=== PATIENT | male | born 2000 | race Caucasian/White ===

== ENCOUNTER 2019-03-15 15:32 | Emergency (ER) | payer BC, SELFPAY ==
[2019-03-15 15:38] VITALS: BP 114/47; PULSE 98; RESP 20; TEMP 36.7; O2SAT 100
--- NOTE | 2019-03-15 16:19 | ED.GENADUL_ITS ---
Discharge Plan Disposition Patient Disposition: HOME Condition: Good Discharge Details Chief Complaint: Chest Pain Clinical Impression: Atypical chest pain Primary Care Provider: Shaji Miles III ED Provider: Rodger Daniels Home Meds and New Rx's Prescriptions: No Action No Known Home Meds RF: 0 Discharge Instructions Instructions: Chest Pain (ED) Additional Instructions: Please see your family doctor return to the emergency department for new concerns worsening pain or inability to follow-up with your primary doctor. Referrals: Shaji Miles III [Primary Care Provider] - Medical Decision Making 19-year-old male with nonspecific chest pain benign physical exam no risk factors normal EKG regular sinus rhythm at 81 normal axis no STEMI no T wave inversions normal interval. Differential diagnosis includes costochondritis versus atypical functional chest pain versus less likely acute coronary syndrome pulmonary embolus or other acute life-threatening cause of chest pain. Patient has no exogenous estrogen no immobilization no history of hypercoagulable states no coronary risk factors no cough no congestion no fever no chills no back pain no tearing sensation no marfanoid appearance HPI 19-year-old male no past medical history who quit smoking a year ago presents with sudden onset sharp and dull central sternal chest pain that comes and goes lasting a few seconds to a minute while driving today. Patient offers a past medical history of anxiety with frequent panic attacks mostly mild once or twice requiring hospitalization in the past feels like some of this might be his anxiety today but also wants to make sure that the chest pain is not something worse. No shortness of breath no loss of consciousness no diaphoresis no recent illness no fever chills weight loss weight gain no illicit drugs alcohol no recent tobacco use. Patient family history of cardiac disease in their 50s and 60s and hypertension no history of sudden no family or personal history of syncope no history of early cardiac heart disease before the age30. General Date/Time Provider Initiated Documentation: 03/15/19 15:56 . Related Data Home Medications Medication Instructions Recorded Confirmed Unknown [No Known Home Meds] 03/15/19 03/15/19 Allergies Allergy/AdvReac Type Severity Reaction Status Date / Time No Known Allergies Allergy Unverified 03/15/19 15:41 General Stated Complaint: Chest Pain CRISTINA: 3 Review of Systems Review of Systems All systems reviewed & are unremarkable except as noted in HPI and below PFSH Medical History History of pelvic fracture (Acute) Panic attacks (Acute) Anxiety (Chronic) Surgical History History of elbow surgery (Acute) History of pancreatic surgery (Acute) Social History Smoking/Tobacco Use Status: Former Tobacco Use Tobacco: How many years used: 1 Alcohol Intake: current Alcohol Intake frequency: a few times a week Alcohol type: beer and hard liquor Drug use: Never Do you feel safe at home: Yes Do you feel safe in your relationship?: Yes Exam Narrative Exam Narrative: Pulse oximetry reviewed by me and is normal [] Constitutional: Pt is in no acute distress. he is well appearing. he oriented to person, place, and time. Eyes: conjunctivae are normal. Pupils are equal, round, and reactive to light. No scleral icterus. extraocular muscles are intact Ears/Nose/Mouth/Throat: mucus membranes are moist. Musculoskeletal: neck is supple. normal range of motion in all extremities. Cardiovascular: Normal rate and rhythm. No lower extremity edema [RRR] Respiratory: effort is normal . pt exhibits no stridor or respiratory distress. [L CTA] GastrointestinaI: abdomen soft, +BS, nontender, -rebound, -guarding. Neurological: alert and oriented to person, place, and time. he has normal strength, no tremor. Skin: Skin is warm and dry. he is not diaphoretic. Distal perfusion in tact, warm extremities, cap refill ? 2 seconds. Hem/Lymph/Imm: No cervical LAD, no goiter, no conjunctival pallor Psych: normal mood and affect. behavior is normal Triage and nurse notes reviewed.[] Course Vital Signs Temperature 36.7 C 03/15/19 15:38 Pulse 98 H 03/15/19 15:38 Respiratory Rate 03/15/19 15:38 Blood Pressure 114/47 L 03/15/19 15:38 Pulse Oximetry 100 03/15/19 15:38 Temperature 36.7 C 03/15/19 15:38 Temperature Source Tympanic 03/15/19 15:38 Pulse 98 H 03/15/19 15:38 Respiratory Rate 20 03/15/19 15:38 Respiratory Effort 03/15/19 15:46 Blood Pressure 114/47 L 03/15/19 15:38 Blood Pressure Position Sitting 03/15/19 15:38 Pulse Oximetry 100 03/15/19 15:38 Oxygen Delivery Method Room Air 03/15/19 15:38 Oxygen Flow Rate 0 05/11/19 15:38 Pain Level 7 03/15/19 15:38
== END 2019-03-15 16:26 | disposition home or self-care (01) ==
PROVIDERS: Emergency Provider Emergency Medicine; PCP Pediatrics
DX: R07.89 Other chest pain (principal); F41.9 Anxiety disorder, unspecified
CPT/HCPCS: 93005; 99283; 93010